=== PATIENT | female | born 1975 | race Caucasian/White ===

== ENCOUNTER 2017-01-18 01:20 | Emergency (ER) | payer SELFPAY ==
--- NOTE | 2017-01-18 01:55 | EDPHY ---
H & P Stated Complaint: FEELING FUNNY AFTER 1 GUMMY WITH NAUSEA HPI/ROS: HPI CHIEF COMPLAINT: Nausea, feeling funny after edible marijuana HISTORY OF PRESENT ILLNESS: Patient otherwise healthy 41-year-old female she presents emergency room by private vehicle after she ingested 1-10 mg edible marijuana warm. Since then she has been feeling nauseous. She denies chest pain or shortness of breath. Denies dizziness. Of note she is visiting [facility] from [facility] her is also patient here in emergency room after consuming more edible marijuana that her. She denies focal weakness chest pain or shortness of breath denies dizziness. Denies numbness or tingling. Main complaint is nausea. Past Medical History: No significant medical history Past Surgical History: No significant surgical history Social History: Lives in [facility], also patient in the ER, here visiting her sister in [facility] Family History: Noncontributory ROS REVIEW OF SYSTEMS: A comprehensive 10 point review of systems is otherwise negative aside from elements mentioned in the history of present illness. Exam Constitutional appears well nontoxic, triage nursing summary reviewed, vital signs reviewed, awake/alert. Eyes normal conjunctivae and sclera, EOMI, PERRLA. HENT normal inspection, atraumatic, moist mucus membranes, no epistaxis, neck supple/ no meningismus, no raccoon eyes. Respiratory clear to auscultation bilaterally, normal breath sounds, no respiratory distress, no wheezing. Cardiovascular rate normal, regular rhythm, no murmur, no edema, distal pulses normal. Gastrointestinal soft, non-tender, no rebound, no guarding, normal bowel sounds, no distension, no pulsatile mass. Genitourinary no CVA tenderness. Musculoskeletal no midline vertebral tenderness, full range of motion, no calf swelling, no tenderness of extremities, no meningismus, good pulses, neurovascularly intact. Skin pink, warm, & dry, no rash, skin atraumatic. Neurologic awake, alert and oriented x 3, AAOx3, moves all 4 extremities equally, motor intact, sensory intact, CN II-XII intact, normal cerebellar, normal vision, normal speech. Psychiatric normal mood/affect. Heme/Lymph/Immune no lymphadenopathy. Differential Diagnosis: Adverse reaction to edible marijuana Medical Decision Making: Plan for this patient p.o. Bethanyan. Re-evaluate. Re-evaluation: [id number]: Re-examination at this time this patient is resting comfortably she does feel much better after p. o. Zofran she has been sleeping here in the emergency room. Re-evaluation at this time she has no complaints she is ready for discharge home like to go home. Source: Patient - Personal History Current Tetanus/Diphtheria Vaccine: Yes Current Tetanus Diphtheria and Acellular Pertussis (TDAP): Yes - Medical/Surgical History Hx Asthma: No Hx Chronic Respiratory Disease: No Hx Diabetes: No Hx Cardiac Disease: No Hx Renal Disease: No Hx Cirrhosis: No Hx Alcoholism: No Hx HIV/AIDS: No Hx Splenectomy or Spleen Trauma: No Other PMH: DENIES - Social History Smoking Status: Never smoked Constitutional: Initial Vital Signs Temperature (C) 36.4 C 01/18/17 01:43 Heart Rate 49 L 01/18/17 01:43 Respiratory Rate 16 01/18/17 01:43 Blood Pressure 102/43 L 01/18/17 01:43 O2 Sat (%) 100 01/18/17 01:43 O2 Delivery Mode Room Air Allergies/Adverse Reactions: No Known Allergies Allergy (Unverified 01/18/17 01:45) Home Medications: Medication Instructions Recorded NK [No Known Home Meds] 01/18/17 Medical Decision Making - Data Points Medications Given: Discontinued Medications Ondansetron HCl (Zofran Odt) 4 mg PO EDNOW ONE Stop: 01/18/17 02:07 Last Admin: 01/18/17 02:37 Dose: 4 mg Departure - Departure Disposition: Home, Routine, Self-Care Clinical Impression: Marijuana intoxication Qualifiers: Complication of substance-induced condition: uncomplicated Qualified Code(s): F12.920 - Cannabis use, unspecified with intoxication, uncomplicated Condition: Good Instructions: Acute Nausea and Vomiting (ED) Additional Instructions: 1. Return emergency room if you have any worsening symptoms questions or concerns. Referrals: NONE *PRIMARY CARE P,. [Primary Care Provider] - As per Instructions
[2017-01-18] MEDS ORDERED: NS 1,000 ML IV ONE ×2 (02:01→02:02)
[2017-01-18] MEDS ORDERED: ONDANSETRON 4 MG/2 ML VIAL IVP ONE (02:02)
[2017-01-18] MEDS ORDERED: ONDANSETRON DISINTEGRATING 4 MG TAB PO ONE (02:06)
[2017-01-18 04:11] VITALS: BP 101/58; PULSE 60; RESP 12; TEMP 98.4; O2SAT 98
== END 2017-01-18 04:56 | disposition home or self-care (01) ==
DX: F12.920 Cannabis use, unspecified with intoxication, uncomplicated (principal)